=== PATIENT | male | born 1995 | race Caucasian/White ===

== ENCOUNTER 2022-11-30 09:44 | Emergency (ER) | payer OTHER ==
[~2022-11-30] VITALS: Ht 170.2 cm; Wt 81.8 kg
[2022-11-30 09:53] VITALS: TEMP 98
[2022-11-30] MEDS ORDERED: IBUPROFEN 600 MG TABLET PO ONE (10:15)
[2022-11-30 10:27] VITALS: BP 119/71; PULSE 70; RESP 16
[2022-11-30] MEDS ORDERED: IBUP-1492 PO (11:51)
== END 2022-11-30 12:04 | disposition home or self-care (01) ==
LOC: EMS 09:44
DX: M25.512 Pain in left shoulder (principal)
CPT/HCPCS: 99283